=== PATIENT | male | born 1960 | race Caucasian/White ===

== ENCOUNTER 2021-11-22 05:04 | Emergency (ER) | payer OTHER ==
[~2021-11-22] VITALS: Ht 170.2 cm; Wt 86.2 kg
[2021-11-22 05:10] VITALS: BP 122/93
--- NOTE | 2021-11-22 05:10 | NUR ---
TO BED AMBULATORY
--- NOTE | 2021-11-22 05:25 | NUR ---
61 YO M BIBS FROM HOME W C/O LEFT LOWER BACK PAIN X 1 DAY WITH PAIN DURING URINATION. NKDA PMH: DM, HTN MEDS: DENIES
--- NOTE | 2021-11-22 06:01 | NUR ---
DR. HERNANDEZ AT BEDSIDE EXAMINING THE PT.
[2021-11-22] MEDS ORDERED: MORPHINE SULFATE 4 MG/ML SYR IVP ONE (06:20)
[2021-11-22] MEDS ORDERED: NACL 0.9% 1,000 ML IV ONE ×2 (06:20→07:35)
[2021-11-22] MEDS ORDERED: KETOROLAC 30 MG/ML VIAL IVP ONE (06:20)
--- NOTE | 2021-11-22 06:35 | NUR ---
PT TAKEN TO CT
--- NOTE | 2021-11-22 06:48 | NUR ---
PT RETURNED FROM CT.
--- NOTE | 2021-11-22 07:12 | NUR ---
REPORT RECEIVED FROM THOMAS RN, RECEIVED PT AWAKE AND ALERT IN BED, DENIES ANY PAIN, NSS INFUSING WELL, RESPIRATONS EVEN AND UNLABORED, IN BED SUPINE, BED LOCKED
--- NOTE | 2021-11-22 07:12 | NUR ---
Pt report given to TACOS. Transfer of care at this time.
[2021-11-22 07:20] LABS: BASOPHILS % (AUTO) 0.2 % (0.0-2.0); HEMATOCRIT 37.8 % (36-52); LYMPHOCYTES # (AUTO) 0.3 K/uL (2.0-11.5); LYMPHOCYTES % (AUTO) 1.7 % (20.5-51.1); MEAN CORPUSCULAR HEMOGLOBIN 21 pg (27-31); MEAN CORPUSCULAR HGB CONC 32 g/dL (33-37); MEAN CORPUSCULAR VOLUME 65.8 fL (80-94); MONOCYTES # (AUTO) 1.3 K/uL (0.8-1.0); MONOCYTES % (AUTO) 6.4 % (1.7-9.3); NEUTROPHILS # (AUTO) 18.3 K/uL (1.8-7.7); NEUTROPHILS % (AUTO) 91.7 % (42.2-75.2); PLATELET COUNT (AUTO) 221 K/uL (140-450); RED BLOOD CELL COUNT(AUTO) 5.75 MIL/uL (4.20-6.10); RED CELL DISTRIBUTION WIDTH 15.2 % (11.6-13.7)
[2021-11-22 07:27] LABS: ALBUMIN 3.6 g/dL (3.4-5.0); ANION GAP 15.5 (8-16); CARBON DIOXIDE 23.8 mmol/L (21-32); CREATININE 1.3 mg/dL (0.6-1.3); POTASSIUM 4.3 mmol/L (3.5-5.1); TOTAL BILIRUBIN 0.8 mg/dL (0.0-1.0)
[2021-11-22] MEDS ORDERED: INSULIN REGULAR, HUMAN 100 UNIT/ML VIAL SUBQ ONE (07:35)
[2021-11-22 08:01] LABS: APPEARANCE,URINE CLEAR (CLEAR); BILIRUBIN,URINE NEGATIVE (NEGATIVE); BLOOD, URINE TRACE-I (NEGATIVE); COLOR,URINE YELLOW (YELLOW); LEUKOCYTE ESTERASE ,URINE NEGATIVE (NEGATIVE); NITRITE, URINE NEGATIVE (NEGATIVE); PH,URINE 5.5 (5.0-9.0); UGLUCOSE 3+ (NEGATIVE)
--- NOTE | 2021-11-22 08:44 | NUR ---
DR HERNANDEZ AT BEDSIDE FOR PROSTATE EXAM, [facility] [employer] REP AT BEDSIDE
[2021-11-22] MEDS ORDERED: IBUP-1842 PO (08:55)
--- NOTE | 2021-11-22 09:17 | NUR ---
PT AMBULATED TO BATHROOM WITH STEADY GAIT, DENIES ANY DYSURIA AT THIS TIME
[2021-11-22 10:36] VITALS: BP 157/76
--- NOTE | 2021-11-22 10:36 | NUR ---
Patient does not wish to proceed with medical care recommended by DR HERNANDEZ. Patient given information related to possible complications, up to and including , which could occur as a result of leaving hospital at this time. Patient verbalizes understanding of risks involved leaving against medical advice. Patient has signed AMA form.
[2021-11-22] MEDS ORDERED: ACET-9527 PO (20:11)
== END 2021-11-22 10:36 | disposition left against medical advice (07) ==
LOC: MED 05:04
DX: E11.65 Type 2 diabetes mellitus with hyperglycemia (principal); N23 Unspecified renal colic; I10 Essential (primary) hypertension
CPT/HCPCS: 36415; 74176; 80053; 81003; 85025; 96361; 96372; 96374; 96375; 99285; J1815; J1885; J2270

== ENCOUNTER 2021-11-22 14:20 | Emergency (ER) | payer OTHER ==
[~2021-11-22] VITALS: Ht 167.6 cm; Wt 74.8 kg
[~2021-11-22 14:20] MED LIST: IBUP-1842 PO
[2021-11-22 14:33] VITALS: BP 143/99
[2021-11-22] MEDS ORDERED: MORPHINE SULFATE 4 MG/ML SYR IVP ONE (15:15)
--- NOTE | 2021-11-22 15:52 | NUR ---
PT AMBULATED TO BED 08.
[2021-11-22 16:18] LABS: BASOPHILS % (AUTO) 0.1 % (0.0-2.0); EOSINOPHILS # (AUTO) 0.1 K/uL (0-0.4); EOSINOPHILS % (AUTO) 0.4 % (0.0-4.0); HEMATOCRIT 37.1 % (36-52); HEMOGLOBIN 11.5 g/dL (12.0-18.0); LYMPHOCYTES # (AUTO) 0.5 K/uL (2.0-11.5); LYMPHOCYTES % (AUTO) 2.3 % (20.5-51.1); MEAN CORPUSCULAR HEMOGLOBIN 21 pg (27-31); MEAN CORPUSCULAR HGB CONC 31 g/dL (33-37); MEAN CORPUSCULAR VOLUME 66.7 fL (80-94); MONOCYTES # (AUTO) 0.9 K/uL (0.8-1.0); MONOCYTES % (AUTO) 4.4 % (1.7-9.3); NEUTROPHILS # (AUTO) 19.9 K/uL (1.8-7.7); NEUTROPHILS % (AUTO) 92.8 % (42.2-75.2); PLATELET COUNT (AUTO) 222 K/uL (140-450); RED BLOOD CELL COUNT(AUTO) 5.57 MIL/uL (4.20-6.10); RED CELL DISTRIBUTION WIDTH 15.1 % (11.6-13.7); WHITE BLOOD COUNT (AUTO) 21.4 K/uL (4.8-10.8)
--- NOTE | 2021-11-22 16:37 | NUR ---
URINE OBTAINED AND URINE DIP DONE
[2021-11-22 16:46] LABS: ANION GAP 15.7 (8-16); CARBON DIOXIDE 21.8 mmol/L (21-32); CREATININE 1.3 mg/dL (0.6-1.3); POTASSIUM 4.5 mmol/L (3.5-5.1)
--- NOTE | 2021-11-22 16:46 | NUR ---
61YR OLD MALE BIB SELF C/O ABD PAIN X1DAY. RIGHT SIDED ABD PAIN RADATES TO RIGHT SIDE OF BACK. 8/10 PAIN LEVEL. PAIN WITH URINATION. PT IS A&OX4. DENIES CP OR SOB. URINE OBTAINED AND SENT TO LAB. 20G IV CATH PLACED IN L AC. LABS SENT . PT STATES ER DX KIDNEY STONES WHEN SEEN EARLIER TODAY. SIDE RAILS UPX 2 BED AT LOWEST POSITION NKDA DM
[2021-11-22] MEDS ORDERED: MORPHINE SULFATE 4 MG/ML SYR ONE (16:55)
--- NOTE | 2021-11-22 17:59 | NUR ---
PATIENT RESTING IN BED RESP EVEN AND UNLABORED. PT ON BEDSIDE MONITOR . ADMISSION ORDERS PENDING.
[2021-11-22] MEDS ORDERED: INSULIN REGULAR, HUMAN 100 UNIT/ML VIAL SUBQ ONE (18:45)
[2021-11-22] MEDS ORDERED: HYDROcodone/APAP 5/325 MG 1 TAB TAB PO ONE (19:00)
[2021-11-22] MEDS ORDERED: NACL 0.9% 1,000 ML IV ONE (19:00)
[2021-11-22] MEDS ORDERED: ACET-9527 PO (20:11)
--- NOTE | 2021-11-22 20:13 | NUR ---
Patient appears to be resting comfortably in bed. Vital Signs within normal limits. Respirations even and unlabored.
--- NOTE | 2021-11-22 21:00 | NUR ---
PT STATED HE GOT RELIF FROM THE NORCO GIVEN. PAIN 06/19
[2021-11-22 21:57] VITALS: BP 131/59
--- NOTE | 2021-11-22 21:57 | NUR ---
Patient discharged with v/s stable. Written and verbal after care instructions given and explained. Patient alert, oriented and verbalized understanding of instructions. Ambulatory with steady gait. All questions addressed prior to discharge. ID band removed. Patient advised to follow up with PMD. Rx of NORCO 5/325 given. Patient educated on indication of medication including possible reaction and side effects. Opportunity to ask questions provided and answered.
--- NOTE | 2021-11-24 08:39 | NUR ---
LATE ENTRY- IV NORMAL SALINE DISCONTINUED AT 2157.
== END 2021-11-22 21:57 | disposition home or self-care (01) ==
LOC: MED 14:20
DX: R10.9 Unspecified abdominal pain (principal); Z20.822 Contact with and (suspected) exposure to COVID-19; E11.65 Type 2 diabetes mellitus with hyperglycemia; E86.0 Dehydration; I10 Essential (primary) hypertension; Z79.899 Other long term (current) drug therapy
CPT/HCPCS: 36415; 80048; 81002; 82803; 82948; 84484; 85025; 87426; 93005; 96360; 96361; 96372; 99283; J1815; J2270; J7030

== ENCOUNTER 2021-11-25 00:05 | Inpatient (IN) | payer OTHER ==
[~2021-11-25] VITALS: Ht 170.2 cm; Wt 85.9 kg
[~2021-11-25 00:05] MED LIST changes: +ACET-9527 PO
[2021-11-25 01:10] VITALS: BP 150/89
--- NOTE | 2021-11-25 01:13 | NUR ---
TO LOBBY A/W BED AMBULATORY
--- NOTE | 2021-11-25 01:15 | NUR ---
SEEN AND EXAMINED BY SONIA
[2021-11-25] MEDS ORDERED: MORPHINE SULFATE 4 MG/ML SYR IVP ONE (01:20)
[2021-11-25] MEDS ORDERED: ONDANSETRON 4 MG/2 ML VIAL IVP ONE (01:20)
[2021-11-25] MEDS ORDERED: NACL 0.9% 1,000 ML IV SCH (01:20)
[2021-11-25 01:34] LABS: BASOPHILS % (AUTO) 0.1 % (0.0-2.0); EOSINOPHILS # (AUTO) 0.1 K/uL (0-0.4); EOSINOPHILS % (AUTO) 0.9 % (0.0-4.0); HEMATOCRIT 36.3 % (36-52); HEMOGLOBIN 11.6 g/dL (12.0-18.0); LYMPHOCYTES # (AUTO) 0.5 K/uL (2.0-11.5); LYMPHOCYTES % (AUTO) 3.7 % (20.5-51.1); MEAN CORPUSCULAR HEMOGLOBIN 21 pg (27-31); MEAN CORPUSCULAR HGB CONC 32 g/dL (33-37); MEAN CORPUSCULAR VOLUME 65.2 fL (80-94); MONOCYTES # (AUTO) 0.8 K/uL (0.8-1.0); MONOCYTES % (AUTO) 6.5 % (1.7-9.3); NEUTROPHILS # (AUTO) 10.9 K/uL (1.8-7.7); NEUTROPHILS % (AUTO) 88.8 % (42.2-75.2); PLATELET COUNT (AUTO) 185 K/uL (140-450); RED BLOOD CELL COUNT(AUTO) 5.56 MIL/uL (4.20-6.10); RED CELL DISTRIBUTION WIDTH 15.3 % (11.6-13.7); WHITE BLOOD COUNT (AUTO) 12.3 K/uL (4.8-10.8)
[2021-11-25 01:34] LABS: APPEARANCE,URINE CLEAR (CLEAR); BILIRUBIN,URINE NEGATIVE (NEGATIVE); BLOOD, URINE 3+ (NEGATIVE); COLOR,URINE ORANGE (YELLOW); LEUKOCYTE ESTERASE ,URINE 1+ (NEGATIVE); NITRITE, URINE POSITIVE (NEGATIVE); PH,URINE 5.5 (5.0-9.0); UGLUCOSE 3+ (NEGATIVE)
[2021-11-25 01:44] LABS: RBC,URINE 0-5 /HPF (0-5); WBC,URINE 80-100 /HPF (0-5)
[2021-11-25 02:11] LABS: ALBUMIN 2.5 g/dL (3.4-5.0); ANION GAP 13.1 (8-16); CREATININE 1.1 mg/dL (0.6-1.3); POTASSIUM 4.1 mmol/L (3.5-5.1); TOTAL BILIRUBIN 0.7 mg/dL (0.0-1.0)
--- NOTE | 2021-11-25 02:20 | NUR ---
PT AMBULATED TO BED NO 12
--- NOTE | 2021-11-25 03:23 | NUR ---
61 Y/O MALE BIBS FROM HOME, C/O VOMITING, BACK PAIN, SINCE WEDNESDAY , SEEN IN ER LAST WEDNESDAY, WITH PRESCRIPTION. PT STATES 02/16. A/OX4, GCS-15; AMBULATPORY W/O ASSISTANCE; UNLABORED BREATHING, SPEAKING IN FULL SENTENCES. NKA
[2021-11-25] MEDS ORDERED: MORPHINE SULFATE 4 MG/ML SYR ONE (03:26)
[2021-11-25] MEDS ORDERED: ONDANSETRON 4 MG/2 ML VIAL ONE (03:26)
[2021-11-25] MEDS ORDERED: cefTRIAXone 1,000 MG VIAL ONE ×2 (03:27→08:07)
--- NOTE | 2021-11-25 04:55 | NUR ---
JOBY/REZA SWABBED AND WALKED TO LAB
--- NOTE | 2021-11-25 07:25 | NUR ---
TRANSFER OF CARE REPORT GIVEN TO AMARIS HARRISON
--- NOTE | 2021-11-25 07:30 | NUR ---
PT. AAOX4, RESTING COMFORTABLY, NO SOB. WILL CONTINUE TO MONITOR.
[2021-11-25] MEDS ORDERED: ACETAMINOPHEN 325 MG TAB PO PRN (07:45)
[2021-11-25] MEDS ORDERED: ZOLPIDEM 5 MG TAB PO PRN (07:45)
[2021-11-25] MEDS ORDERED: POTASSIUM CHLORIDE 10 MEQ TABER PO PRN (07:45)
[2021-11-25] MEDS ORDERED: ONDANSETRON 4 MG/2 ML VIAL IM/IVP PRN (07:45)
[2021-11-25] MEDS ORDERED: DOCUSATE SODIUM 100 MG GELCAP PO PRN (07:45)
[2021-11-25] MEDS ORDERED: guaiFENesin DM 200/20 MG-10 ML 10 ML UDC PO PRN (07:45)
[2021-11-25] MEDS ORDERED: HYDROcodone/APAP 7.5/325 MG 1 TAB PO PRN (07:45)
[2021-11-25] MEDS: NACL 0.9% 1,000 ML IV SCH ×4 (08:31→22:36)
[2021-11-25 08:34] LABS: CHOL/HDL RATIO 4.4 (1-4.5); FREE T4 (FREE THYROXINE) 1.37 ng/dL (0.76-1.46); MAGNESIUM 2.2 mg/dL (1.8-2.4); PHOSPHORUS 2.5 mg/dL (2.5-4.9); THYROID STIMULATING HORMONE 0.62 uIU/mL (0.34-3.74)
[2021-11-25] MEDS: PANTOPRAZOLE 40 MG TABEC PO SCH (08:34)
--- NOTE | 2021-11-25 08:50 | NUR ---
Dr Goodson at bedside to evaluate pt at bedside.
--- NOTE | 2021-11-25 10:12 | NUR ---
O2 2LNC PLACED, O2SAT @ 95%
[2021-11-25] MEDS ORDERED: DEXTROSE 50% 50 ML SYR IVP PRN (13:45)
[2021-11-25] MEDS: lisinopriL 20 MG TAB PO SCH (14:52)
--- NOTE | 2021-11-25 15:52 | NUR ---
Pt placed on RA with VSS. Update given on care plan and all safety measures in place. Pt denies SOB/CP/N/V at this time
--- NOTE | 2021-11-25 16:18 | NUR ---
Pt report given to AMARIS Meza. Transfer of care at this time.
--- NOTE | 2021-11-25 16:35 | NUR ---
PATIENT HAS BEEN SCREENED AND CATEGORIZED HIGH NUTRITION RISK. PATIENT WILL BE SEEN WITHIN 1-2 DAYS OF ADMISSION. / ARNOLDO WILLIAM RD
[2021-11-25] MEDS: BLOOD GLUCOSE MONITORING 1 DEV DEV FS SCH ×2 (16:38→21:21)
[2021-11-25] MEDS: INSULIN LISPRO SLIDING SCALE 100 UNITS/ML VIAL SUBQ PRN ×2 (17:15→21:30)
--- NOTE | 2021-11-25 17:18 | NUR ---
INSULIN GIVE PER PROTOCOL 10U. BS 370
--- NOTE | 2021-11-25 21:38 | NUR ---
RECEIVED PT FROM CONTESTANT COORDINATOR QING, PT IS A/O X4, FULL CODE, NKA, AMBULATORY, PT IS NIGERIAN SPEAKING AND DOES UNDERSTAND SOME YORUBA. PT HAS A RAC PIV 20G SALINE LOCK. PT DENIES PAIN AT THIS TIME. PT CURRENT VS: T: 98.1, BP:139/72 (94), SPO2: 95% ON ROOM AIR, RR:16, HR:75. DX: PYELONEPHRITIS, CC: ABDOMINAL PAIN. PT HAS A BAG, SHOES, & A HAT, ON BEDSIDE. PT HAS SOME PANTS ON WITH HOSPITAL GOWN. HE DID NOT WANT TO TAKE HIS PANTS OFF. PT ALSO STATED THAT HE HAS A WALLET AND PHONE IN HIS BAG BUT I WAS NOT ABLE TO PHYSICALLY SEE IT PATIENT DID NOT WANT US TO GO THROUGH HIS BAG AT THE MOMENT. PT WAS PROVIDED WITH A NEW GOWN, AND LINEN. BED IN LOWEST POSITION, HOB ELEVATED, CALL LIGHT IN REACH, SIDE RAILS X2. WILL CONTINUE TO MONITOR AND MAKE FREQUENT ROUNDS.
--- NOTE | 2021-11-25 21:40 | NUR ---
Patient will be admitted to care of DR PETERSON. Admited to MED SURG. Will go to room 111A. Belongings list completed. Report to AMARIS SIEGEL.
[2021-11-25 21:48] VITALS: BP 139/72
[2021-11-26] MEDS: NACL 0.9% 1,000 ML IV SCH ×3 (06:00→20:50)
[2021-11-26 07:11] LABS: BASOPHILS % (AUTO) 0.2 % (0.0-2.0); EOSINOPHILS % (AUTO) 0.2 % (0.0-4.0); HEMATOCRIT 30.6 % (36-52); HEMOGLOBIN 9.8 g/dL (12.0-18.0); LYMPHOCYTES # (AUTO) 0.8 K/uL (2.0-11.5); LYMPHOCYTES % (AUTO) 5.9 % (20.5-51.1); MEAN CORPUSCULAR HEMOGLOBIN 21 pg (27-31); MEAN CORPUSCULAR HGB CONC 32 g/dL (33-37); MEAN CORPUSCULAR VOLUME 65.4 fL (80-94); MONOCYTES # (AUTO) 1.8 K/uL (0.8-1.0); MONOCYTES % (AUTO) 13.9 % (1.7-9.3); NEUTROPHILS # (AUTO) 10.6 K/uL (1.8-7.7); NEUTROPHILS % (AUTO) 79.8 % (42.2-75.2); PLATELET COUNT (AUTO) 164 K/uL (140-450); RED BLOOD CELL COUNT(AUTO) 4.67 MIL/uL (4.20-6.10); RED CELL DISTRIBUTION WIDTH 15.5 % (11.6-13.7); WHITE BLOOD COUNT (AUTO) 13.3 K/uL (4.8-10.8)
[2021-11-26] MEDS: BLOOD GLUCOSE MONITORING 1 DEV DEV FS SCH ×4 (07:30→21:00)
--- NOTE | 2021-11-26 07:30 | NUR ---
RECEIVED REPORT FROM FRUIT LOADER MACHINE OPERATOR NURSE. NO S/S OF DISTRESS. CALL LIGHT IN REACH. ALL SAFETY MEASURES IN PLACE. IV FLUIDS RUNNING PER MD ORDER. PER FRUIT LOADER MACHINE OPERATOR NURSE, PT REFUSED MORNING BG CHECK. PT STATED HE "WANTS TO SLEEP"
[2021-11-26 07:54] LABS: ANION GAP 12.7 (8-16); CARBON DIOXIDE 25.3 mmol/L (21-32)
[2021-11-26 08:00] VITALS: BP 141/76
[2021-11-26 08:08] LABS: T4 (THYROXINE) 7.5 ug/dL (4.5-12.0)
[2021-11-26] MEDS: lisinopriL 20 MG TAB PO SCH (08:59)
[2021-11-26] MEDS: PANTOPRAZOLE 40 MG TABEC PO SCH (08:59)
[2021-11-26] MEDS: INSULIN LISPRO SLIDING SCALE 100 UNITS/ML VIAL SUBQ PRN ×4 (09:04→22:20)
--- NOTE | 2021-11-26 11:45 | NUR ---
BG 315, WILL ADMINISTER INSULIN PER SLIDING SCALE. EDUCATED PT ON DIET AND ACTIVITY. PT VERBALIZED UNDERSTANDING
--- NOTE | 2021-11-26 14:14 | NUR ---
11/26/21 RD INITIAL ASSESSMENT COMPLETED PLEASE REFER TO NUTRITION ASSESSMENT UNDER CARE ACTIVITY FOR ESTIMATED NUTRITIONAL NEEDS. 1. CONTINUE CCHO 60 GMS DIET TOLERATED 2. MONITOR GI SYMPTOMS 3. RD TO FOLLOW-UP 3-5 DAYS, MODERATE RISK REVIEWED BY ARNOLDO WILLIAM RD
[2021-11-26 16:00] VITALS: BP 144/80
--- NOTE | 2021-11-26 16:40 | NUR ---
PT COMPLAINED OF BACK PAIN 10/17. EDUCATED PT ON PAIN MANAGEMENT AND RELAXATION TECHNIQUES. CALL LIGHT IN REACH. ALL SAFETY MEASURES IN PLACE. BG 366, COVERAGE GIVEN 10 UN.
--- NOTE | 2021-11-26 19:09 | NUR ---
ENDORSED PT TO MANAGER ANIMAL NURSE. NO S/S OF DISTRESS. CALL LIGHT IN REACH. ALL SAFETY MEASURES IN PLACE
--- NOTE | 2021-11-26 19:10 | NUR ---
RECEIVED REPORT FROM JULISSA GLEZ, PATIENT WAS STABLE DURING SHIFT REPORT. PATIENT WAS ABLE TO DESCRIBE REASON FOR BEING IN THE HOSPITAL. PATIENT WAS ABLE TO BREATH EVENLY WITHOUT DISTRESS. PATIENT DENIED ANY PAIN AT THIS TIME. SIDE RAILS UP X 2. BED AT THE LOWEST STAGE. PATIENT WAS ENCOURAGED TO USE THE CALL LIGHT FOR ASSISTANCE. PATIENT HAS A URINAL AT THE BEDSIDE BUT HAS ACCESS TO BATHROOM. [email or web address]
--- NOTE | 2021-11-26 20:00 | NUR ---
Patient's Plan of Care was discussed and reviewed witH [place]SHA [place]S.
--- NOTE | 2021-11-26 21:45 | NUR ---
PATIENT REQUEST FOR PAIN PRN FOR MODERATED PAIN. NURSING GAVE WITH BLOOD PRESSURE NOTED AT 145/78 HR 82. NURSING WILL MONITOR FOR EFFECTIVENESS AND SIDE EFFECTS. [email or web address]
--- NOTE | 2021-11-26 23:54 | NUR ---
PATIENT NOTED IN BED ASLEEP WITHOUT DISTRESS. NO S/S OF PAIN/DISCOMFORT. SIDE RAILS UP X 2. CALL LIGHT WITHIN REACH. [email or web address]
--- NOTE | 2021-11-27 01:42 | NUR ---
DURING ROUNDS, NURSING NOTED PATIENT ASLEEP IN BED WITHOUT INCIDENT. NO S/S OF PAIN. NO S/S OF RESPIRATORY DISTRESS. SIDE RAILS UP X 2 FOR SAFETY. CALL LIGHT WITHIN REACH FOR ASSISTANCE. [email or web address]
[2021-11-27 04:00] VITALS: BP 149/69
[2021-11-27] MEDS: NACL 0.9% 1,000 ML IV SCH ×2 (04:15→08:34)
[2021-11-27] MEDS: INSULIN LISPRO SLIDING SCALE 100 UNITS/ML VIAL SUBQ PRN ×2 (07:01→11:32)
[2021-11-27] MEDS: BLOOD GLUCOSE MONITORING 1 DEV DEV FS SCH ×2 (07:04→11:23)
--- NOTE | 2021-11-27 07:24 | NUR ---
ENDORSED PATIENT CARE TO RACHEL LARSON, PATIENT WAS STABLE DURING THE SHIFT CHANGE. [email or web address]
--- NOTE | 2021-11-27 07:25 | NUR ---
RECEIVED REPORT FROM BONE CHAR OPERATOR NURSE FOR CONTINUITY OF CARE. PATIENT ASLEEP. RESPIRATION EVEN AND NOT LABORED NO SHORTNESS OF BREATH. IV SITE ON RIGHT AC TELLY 20 RUNNING 135 /HOUR OF NS. ALL SAFETY MEASURE IN PLACE.
[2021-11-27 07:55] LABS: BASOPHILS % (AUTO) 0.2 % (0.0-2.0); EOSINOPHILS % (AUTO) 0.4 % (0.0-4.0); HEMATOCRIT 31.6 % (36-52); LYMPHOCYTES % (AUTO) 7.2 % (20.5-51.1); MEAN CORPUSCULAR HEMOGLOBIN 21 pg (27-31); MEAN CORPUSCULAR HGB CONC 32 g/dL (33-37); MEAN CORPUSCULAR VOLUME 65.2 fL (80-94); MONOCYTES % (AUTO) 14.6 % (1.7-9.3); NEUTROPHILS # (AUTO) 10.3 K/uL (1.8-7.7); NEUTROPHILS % (AUTO) 77.6 % (42.2-75.2); PLATELET COUNT (AUTO) 196 K/uL (140-450); RED BLOOD CELL COUNT(AUTO) 4.85 MIL/uL (4.20-6.10); RED CELL DISTRIBUTION WIDTH 15.6 % (11.6-13.7); WHITE BLOOD COUNT (AUTO) 13.3 K/uL (4.8-10.8)
[2021-11-27 07:56] LABS: EOSINOPHILS # (AUTO) 0.1 K/uL (0-0.4)
[2021-11-27 08:00] VITALS: BP 156/78
--- NOTE | 2021-11-27 08:00 | NUR ---
Patient's Plan of Care was discussed and reviewed with CHECK INSPECTOR: RACHEL. WILL CONTINUE WITH CURRENT POC.
--- NOTE | 2021-11-27 08:30 | NUR ---
HOUSE SUPERINTENDENT AT BED SIDE STARTED DIALYSIS TO PATIENT. PATIENT ON STABLE CONDITION.
[2021-11-27] MEDS: PANTOPRAZOLE 40 MG TABEC PO SCH (08:31)
[2021-11-27] MEDS: lisinopriL 20 MG TAB PO SCH (08:32)
--- NOTE | 2021-11-27 08:35 | NUR ---
PATIENT AWAKE GIVEN DUE MEDICATION . NO DISTRESS WATCHING TV. DENIES PAIN OR ANY DISCOMFORT. IVF BAG CHANGED.
[2021-11-27 09:39] LABS: ANION GAP 13.2 (8-16); CREATININE 0.9 mg/dL (0.6-1.3); POTASSIUM 4.2 mmol/L (3.5-5.1)
[2021-11-27] MEDS ORDERED: SULF-954 PO (10:52)
--- NOTE | 2021-11-27 11:33 | NUR ---
BLOOD SUGAR CHECK AND GIVEN INSULIN COVERAGE ALSO INFORM THAT HE HAS DISCHARGE ORDER.
[2021-11-27 12:43] VITALS: BP 156/78
--- NOTE | 2021-11-27 13:16 | NUR ---
PATIENT ALERT ORIENTED. GIVEN DISCHARGE PACKET WITH INSTRUCTION . VERBALIZED WITH UNDERSTANDING. REMOVED NAME BAND AND IV SITE WITH CATHETER INTACT. PATIENT BRING ALL BELONGING CASE MANAGE TALK TO HIM BEFORE HE WAS DISCHARGE. PATIENT AMBULATE REFUSED TO HAVE WHEELCHAIR. ACCOMPANIED TILL THE LOBBY. PATIENT ON STABLE GATE AND STABLE CONDITION.
== END 2021-11-27 13:15 | disposition home or self-care (01) | DRG 871 ==
LOC: MED 00:05 → MMU 04:59 → MTU 18:42
PROVIDERS: ADMIT Student in an Organized Health Care Education/Training Program; ATTEND Student in an Organized Health Care Education/Training Program
DX: A41.9 Sepsis, unspecified organism (principal); E43 Unspecified severe protein-calorie malnutrition; G93.41 Metabolic encephalopathy; N17.0 Acute kidney failure with tubular necrosis; E87.1 Hypo-osmolality and hyponatremia; N13.6 Pyonephrosis; I10 Essential (primary) hypertension; N20.0 Calculus of kidney; E11.65 Type 2 diabetes mellitus with hyperglycemia; D64.9 Anemia, unspecified; E78.2 Mixed hyperlipidemia; N32.0 Bladder-neck obstruction; Z20.822 Contact with and (suspected) exposure to COVID-19; Z79.891 Long term (current) use of opiate analgesic; Z79.899 Other long term (current) drug therapy; Z79.1 Long term (current) use of non-steroidal anti-inflammatories (NSAID); Z68.29 Body mass index [BMI] 29.0-29.9, adult
CPT/HCPCS: 36415; 76770; 80048; 80053; 81001; 82150; 82948; 83036; 83605; 83690; 83735; 83880; 84100; 84436; 84439; 84443; 84479; 84484; 85025; 85610; 85730; 87040; 87081; 87086; 96365; 96375; 99285; J0696; J2270; J2405; J7060; Q0092